=== PATIENT | female | born 1990 | race American Indian/Alaskan Native ===

== ENCOUNTER 2017-04-23 17:13 | Emergency (ER) | payer OTHER ==
[2017-04-23 19:52] LABS: Basophils % (Auto) 0.4 % (0.0-1.8); Eosinophils % (Auto) 0.4 % (0.0-4.3); Hematocrit 36.3 % (30.3-42.9); Mean Corpuscular HGB Conc 33 % (30-34); Mean Corpuscular Hemoglobin 32 pg (28-32); Mean Corpuscular Volume 95 fl (79-97); Platelet Count 278 K/mm3 (140-440); Red Blood Count 3.82 M/mm3 (3.65-5.03); Red Cell Distribution Width 16.2 % (13.2-15.2); White Blood Count 8.2 K/mm3 (4.5-11.0)
[2017-04-23 20:04] LABS: Alanine Aminotransferase 41 units/L (7-56); Albumin 4.1 g/dL (3.9-5); Albumin/Globulin Ratio 1.1 %; Alkaline Phosphatase 45 units/L (35-129); Anion Gap 20 mmol/L; Blood Urea Nitrogen 12 mg/dL (7-17); Calcium 9.9 mg/dL (8.4-10.2); Carbon Dioxide 20 mmol/L (22-30); Chloride 95.7 mmol/L (98-107); Glucose 154 mg/dL (65-100); Lipase 58 units/L (13-60); Potassium 3.7 mmol/L (3.6-5.0); Sodium 132 mmol/L (137-145); Total Protein 7.9 g/dL (6.3-8.2)
[2017-04-23] MEDS ORDERED: NACL 0.9% 1000 ML 1,000 ML IV ONE (22:26)
[2017-04-23] MEDS ORDERED: ZOFRAN IV ONE (22:26)
--- NOTE | 2017-04-23 22:30 | Emergency Department Report ---
ED Abdominal Pain HPI - General Chief Complaint: Nausea/Vomiting/Diarrhea Stated Complaint: ASTHMA/CP/PREG UNK MONTHS Time Seen by Provider: 04/23/17 22:11 Source: patient Mode of arrival: Ambulatory Limitations: No Limitations - History of Present Illness Initial Comments: Patient stated that she is Having lower abdominal pain vaginal bleeding nausea vomiting for the last 2 weeks. MD Complaint: abdominal pain -: week(s) Location: suprapubic Severity scale (0 -10): 4 Quality: cramping, fullness Associated Symptoms: nausea, vomiting. denies: diarrhea - Related Data Previous Rx's Medication Instructions Recorded Last Taken Type Ondansetron [Zofran Odt] 4 mg PO Q4-6H PRN #14 tab.rapdis 04/24/17 Unknown Rx Vit W-Ca,Fe,FA(<1 mg) 1 each PO DAILY #30 tablet 04/24/17 Unknown Rx [ Vitamins] Allergies Allergy/AdvReac Type Severity Reaction Status Date / Time No Known Allergies Allergy Unverified 04/23/17 18:45 ED Review of Systems ROS: Stated complaint: ASTHMA/CP/PREG UNK MONTHS Other details as noted in HPI Comment: All other systems reviewed and negative Constitutional: denies: chills, fever Respiratory: denies: cough, shortness of breath Gastrointestinal: abdominal pain, nausea, vomiting Genitourinary: urgency, frequency Neurological: denies: headache, paresthesias ED Past Medical Hx - Past Medical History Previous Medical History?: Yes Hx Asthma: Yes - Surgical History Past Surgical History?: No - Social History Smoking Status: Former Smoker Substance Use Type: None - Medications Home Medications: Home Medications Medication Instructions Recorded Confirmed Last Taken Type Ondansetron [Zofran Odt] 4 mg PO Q4-6H PRN #14 tab.rapdis 04/24/17 Unknown Rx Vit W-Ca,Fe,FA(<1 mg) 1 each PO DAILY #30 tablet 04/24/17 Unknown Rx [ Vitamins] ED Physical Exam - General Limitations: No Limitations General appearance: alert, in no apparent distress - Head Head exam: Present: atraumatic - Eye Eye exam: Present: normal appearance - ENT ENT exam: Present: normal exam - Neck Neck exam: Present: normal inspection. Absent: tenderness - Respiratory Respiratory exam: Present: normal lung sounds bilaterally. Absent: wheezes, rales, rhonchi - Cardiovascular Cardiovascular Exam: Present: regular rate, normal rhythm, normal heart sounds - GI/Abdominal GI/Abdominal exam: Present: soft, tenderness ( suprapubic), normal bowel sounds. Absent: distended, guarding, rebound - Back Exam Back exam: Present: normal inspection. Absent: tenderness, CVA tenderness (R), CVA tenderness (L) - Neurological Exam Neurological exam: Present: alert, oriented X3, CN II-XII intact - Skin Skin exam: Present: warm, intact ED Course Vital Signs 04/23/17 04/23/17 04/23/17 17:38 22:02 22:11 Temperature 98.1 F Pulse Rate 84 106 H 105 H Respiratory 18 22 25 H Rate Blood Pressure 134/87 138/75 O2 Sat by Pulse 100 Oximetry 04/23/17 04/23/17 04/23/17 22:21 22:30 22:41 Temperature Pulse Rate 100 H 105 H 107 H Respiratory 22 18 14 Rate Blood Pressure 143/79 115/66 143/79 O2 Sat by Pulse Oximetry 04/23/17 23:47 Temperature Pulse Rate 89 Respiratory 17 Rate Blood Pressure 122/71 O2 Sat by Pulse Oximetry - Reevaluation(s) Reevaluation #1: 04/24/17 01:11 Patient stated that she is feeling much better. No abdominal pain or cramping no vaginal bleeding. No nausea or vomiting patient informed him about our ultrasound and that she is having a twin . Patient advised to follow- up with her OB in the next 2-3 days. ED Medical Decision Making - Lab Data Result diagrams: 04/23/17 19:20 04/23/17 19:20 Critical care attestation.: If time is entered above; I have spent that time in minutes in the direct care of this critically ill patient, excluding procedure time. ED Disposition Clinical Impression: Abdominal pain affecting , Twin gestation in first trimester, Vomiting affecting Disposition: DC-01 TO HOME OR SELFCARE Is pt being admited?: No Does the pt Need Aspirin: No Condition: Stable Instructions: Abdominal Pain in (ED), Acute Nausea and Vomiting (ED) Referrals: PRIMARY CARE, [Primary Care Provider] - 3-5 Days
[2017-04-23 23:04] LABS: Bilirubin,Urine NEG (Negative); Blood,Urine NEG (Negative); Ketones,Urine TR mg/dL (Negative); Leukocyte Esterase,Urine TR (Negative); Mucus,Urine 3+ /HPF; Nitrite,Urine NEG (Negative); Urobilinogen,Urine < 2.0 mg/dL (<2.0)
--- NOTE | 2017-04-24 01:01 | Ultrasound Report ---
FINAL REPORT PROCEDURE: US OB TRANSVAGINAL TECHNIQUE: Real-time transvaginal sonography of the uterus, placenta, amniotic fluid, adnexa, and fetus was performed with image documentation. Measurements were obtained to determine age/size. M-mode Doppler was used to document heartbeat. CPT 24392 HISTORY: ABDOMINAL PAIN COMPARISON: No prior studies are available for comparison. FINDINGS: FETUS A: CRL: 20.3mm, which corresponds to a gestational age of: 8weeks, 4 days. Yolk Sac: Normal. Embryonic Cardiac Activity: 177 beats per minute Gestational Sac: Normal. There is a subchorionic hematoma measuring 17 x 3 x 18 millimeters. Right Ovary: There is a 1.5 centimeter cyst. Left Ovary: Normal. Estimated delivery date: November 29, 2017 Comment: Complete anatomic survey at 18-20 weeks suggested. IMPRESSION: 1. Twin intrauterine gestation. Fetus A is at approximately 8 weeks and 4 days 2. EDC by US November 29, 2017. 3. There is a subchorionic hematoma..
--- NOTE | 2017-04-24 01:03 | Ultrasound Report ---
FINAL REPORT PROCEDURE: US OB LESS THAN 14 WEEKS TECHNIQUE: Real-time transabdominal sonography of the uterus, placenta, amniotic fluid, adnexa, and fetus was performed with image documentation. Measurements were obtained to determine age/size. M-mode Doppler was used to document heartbeat. HISTORY: ABDOMINAL PAIN COMPARISON: No prior studies are available for comparison. FINDINGS: FETUS A: CRL: 20.3mm, which corresponds to a gestational age of: 8weeks, 4 days. Yolk Sac: Normal. Embryonic Cardiac Activity: 177 beats per minute Gestational Sac: Normal. There is a subchorionic hematoma measuring 17 x 3 x 18 millimeters. Right Ovary: There is a 1.5 centimeter cyst. Left Ovary: Normal. Estimated delivery date: November 29, 2017 Comment: Complete anatomic survey at 18-20 weeks suggested. IMPRESSION: 1. Twin intrauterine gestation. Fetus A is at approximately 8 weeks and 4 days 2. EDC by US November 29, 2017. 3. There is a subchorionic hematoma..
--- NOTE | 2017-04-24 01:04 | Ultrasound Report ---
FINAL REPORT PROCEDURE: US OB TRANSVAGINAL TECHNIQUE: Real-time transvaginal sonography of the uterus, placenta, amniotic fluid, adnexa, and fetus was performed with image documentation. Measurements were obtained to determine age/size. M-mode Doppler was used to document heartbeat. CPT 76022 HISTORY: ABDOMINAL PAIN COMPARISON: No prior studies are available for comparison. FINDINGS: FETUS B: CRL: 20.7mm, which corresponds to a gestational age of: 8weeks, 4 days. Yolk Sac: Normal. Embryonic Cardiac Activity: 162 beats per minute Gestational Sac: Normal. Right Ovary: There is a 1.5 centimeter cyst. Left Ovary: Normal. Estimated delivery date: November 29, 2017 Comment: Complete anatomic survey at 18-20 weeks suggested. IMPRESSION: 1. Twin intrauterine gestation. Fetus B is at approximately 8 weeks and 4 days 2. EDC by US November 29, 2017.
[2017-04-24 02:24] VITALS: BP 122/72
== END 2017-04-24 01:50 | disposition home or self-care (01) ==
LOC: ED 17:13
DX: O21.9 Vomiting of pregnancy, unspecified (principal); R10.9 Unspecified abdominal pain; J45.909 Unspecified asthma, uncomplicated; Z87.891 Personal history of nicotine dependence; Z3A.08 8 weeks gestation of pregnancy
CPT/HCPCS: 36415; 76801; 76802; 76817; 80053; 81001; 83690; 84702; 85025; 96361; 96374; 99284; J2405; J7030

== ENCOUNTER 2019-09-01 18:46 | Emergency (ER) | payer OTHER ==
--- NOTE | 2019-09-01 19:09 | Event Note ---
ED Screening Note Date of service: 09/01/19 Time: 19:07 ED Screening Note: 28 y o female with pmh of asthma presents for couhghing, sob x 2 days out of inhaler This initial assessment/diagnostic orders/clinical plan/treatment(s) is/are subject to change based on patients health status, clinical progression and re- assessment by fellow clinical providers in the ED. Further treatment and workup at subsequent clinical providers discretion. Patient/guardian urged not to elope from the ED as their condition may be serious if not clinically assessed and managed. Initial orders include: breathing treatment prednisone cxr
--- NOTE | 2019-09-01 19:55 | XRay Report ---
CHEST 2 VIEWS INDICATION / CLINICAL INFORMATION: MAIN: asthma; Pt c/o cough and chest tightness onset 2 days ago, pt reports ran out of inhaler. H/o asthma. . COMPARISON: None available. FINDINGS: SUPPORT DEVICES: None. HEART / MEDIASTINUM: No significant abnormality. LUNGS / PLEURA: No significant pulmonary or pleural abnormality. No pneumothorax. ADDITIONAL FINDINGS: No significant additional findings. IMPRESSION: 1. No acute findings. Signer Name: Tomas Kraft MD Signed: 09/01/2019 7:51 PM Workstation Name: [id number]
[2019-09-01] MEDS ORDERED: dexAMETHasone 20 MG/5 ML VIAL IV ONE (22:08)
[2019-09-01] MEDS ORDERED: ALBUTEROL 2.5 MG/3 ML NEBU IH ONE (22:09)
--- NOTE | 2019-09-01 22:21 | Emergency Department Report ---
ED General Adult HPI - General Chief complaint: Adult Asthma Stated complaint: CHEST PAIN Source: patient Mode of arrival: Ambulatory Limitations: No Limitations - History of Present Illness Initial comments: 28yo BF states that she is experiencing chest tightness and cough x 2 days. The pt states that she ran out of her albuterol inhaler. -: days(s) (2) Location: chest Radiation: abdomen Severity scale (0 -10): 7 Quality: aching Consistency: constant Improves with: none Worsens with: none Associated Symptoms: malaise, weakness Treatments Prior to Arrival: none - Related Data Previous Rx's Medication Instructions Recorded Last Taken Type Ondansetron [Zofran Odt] 4 mg PO Q4-6H PRN #14 tab.rapdis 04/24/17 Unknown Rx Vit Calc,Iron,Folic 1 each PO DAILY #30 tablet 04/24/17 Unknown Rx [ Vitamins] ALBUTEROL Inhaler (OR & NICU) 2 puff IH QID PRN #8.5 gram 09/02/19 Unknown Rx [ProAir HFA Inhaler] Allergies Allergy/AdvReac Type Severity Reaction Status Date / Time No Known Allergies Allergy Verified 09/01/19 18:53 ED Review of Systems ROS: Stated complaint: CHEST PAIN Other details as noted in HPI Comment: All other systems reviewed and negative Constitutional: see HPI Respiratory: see HPI Cardiovascular: as per HPI Gastrointestinal: as per HPI ED Past Medical Hx - Past Medical History Previous Medical History?: Yes Hx Asthma: Yes - Surgical History Past Surgical History?: Yes Additional Surgical History: - Social History Smoking Status: Never Smoker Substance Use Type: None - Medications Home Medications: Home Medications Medication Instructions Recorded Confirmed Last Taken Type Ondansetron [Zofran Odt] 4 mg PO Q4-6H PRN #14 tab.rapdis 04/24/17 Unknown Rx Vit Calc,Iron,Folic 1 each PO DAILY #30 tablet 04/24/17 Unknown Rx [ Vitamins] ALBUTEROL Inhaler (OR & NICU) 2 puff IH QID PRN #8.5 gram 09/02/19 Unknown Rx [ProAir HFA Inhaler] ED Physical Exam - General Limitations: No Limitations General appearance: alert, in no apparent distress - Head Head exam: Present: atraumatic, normocephalic - Eye Eye exam: Present: normal appearance, PERRL Pupils: Present: normal accommodation - ENT ENT exam: Present: normal exam, normal orophraynx - Neck Neck exam: Present: normal inspection. Absent: tenderness - Respiratory Respiratory exam: Present: wheezes (wheezes present diffusely), chest wall tenderness (mid chest tenderness). Absent: respiratory distress - Cardiovascular Cardiovascular Exam: Present: regular rate, normal rhythm, normal heart sounds - GI/Abdominal GI/Abdominal exam: Present: soft, tenderness (tenderness present diffusely), normal bowel sounds. Absent: distended - Rectal Rectal exam: Present: deferred - Extremities Exam Extremities exam: Present: normal inspection, full ROM. Absent: tenderness - Back Exam Back exam: Present: full ROM. Absent: CVA tenderness (R), CVA tenderness (L) - Neurological Exam Neurological exam: Present: alert, altered, oriented X3 - Psychiatric Psychiatric exam: Present: normal affect, normal mood - Skin Skin exam: Present: warm, dry, intact ED Course Vital Signs 09/01/19 09/01/19 19:07 22:27 Temperature 98.6 F Pulse Rate 94 H Pulse Rate [ 75 Bilateral Throughout] Respiratory 18 Rate Respiratory 18 Rate [Bilateral Throughout] Blood Pressure 111/70 [Right] O2 Sat by Pulse 98 Oximetry ED Medical Decision Making - Radiology Data [facility] [address] [place] [address] XRay Report Signed Patient: KARI FRITZ MR#: [id number] : 1990 Acct:[id number] Age/Sex: 28 / F ADM Date: 09/01/19 Loc: ED Attending Dr: Ordering Physician: PEDRO PABLO ZAPIEN Date of Service: 09/01/19 Procedure(s): XR chest routine 2V Accession Number(s): [id number] cc: PEDRO PABLO ZAPIEN Fluoro Time In Minutes: CHEST 2 VIEWS INDICATION / CLINICAL INFORMATION: MAIN: asthma; Pt c/o cough and chest tightness onset 2 days ago, pt reports ran out of inhaler. H/o asthma. . COMPARISON: None available. FINDINGS: SUPPORT DEVICES: None. HEART / MEDIASTINUM: No significant abnormality. LUNGS / PLEURA: No significant pulmonary or pleural abnormality. No pneumothorax. ADDITIONAL FINDINGS: No significant additional findings. IMPRESSION: 1. No acute findings. Signer Name: Tomas Kraft MD Signed: 09/01/2019 7:51 PM Workstation Name: [id number] Transcribed By: MARIO Dictated By: Tomas Kraft MD Electronically Authenticated By: Tomas Kraft MD Signed Date/Time: 09/01/191950 DD/ 49 TD/TT: - Medical Decision Making 28yo BF states that she is experiencing chest tightness and cough x 2 days. The pt states that she ran out of her albuterol inhaler. Pt was given Decadron injection and Albuterol Nebulizer treatment. After the treatment, the pt verbalized less difficulty breathing and a new relief. Pt was informed that an Albuterol inhaler will be prescribed, f/u with PCP, and see ER if symptoms worsen or as needed. Pt verbalized understanding and agreed with the plan of care. Critical care attestation.: If time is entered above; I have spent that time in minutes in the direct care of this critically ill patient, excluding procedure time. ED Disposition Clinical Impression: Asthma exacerbation Disposition: DC-01 TO HOME OR SELFCARE Is pt being admited?: No Does the pt Need Aspirin: No Condition: Stable Instructions: Asthma (ED) Additional Instructions: Pt was informed that an Albuterol inhaler will be prescribed, f/u with PCP, and see ER if symptoms worsen or as needed. Pt verbalized understanding and agreed with the plan of care. Prescriptions: ALBUTEROL Inhaler (OR & NICU) [ProAir HFA Inhaler] 2 puff IH QID PRN #8.5 gram PRN Reason: Shortness Of Breath
[2019-09-02 01:10] VITALS: BP 120/61
== END 2019-09-02 00:30 | disposition home or self-care (01) ==
LOC: ED 18:46
DX: J45.909 Unspecified asthma, uncomplicated (principal); Z98.890 Other specified postprocedural states; Z79.899 Other long term (current) drug therapy
CPT/HCPCS: 71046; 94640; 96374; 99283; J1100; 94644

== ENCOUNTER 2021-03-05 03:00 | Emergency (ER) | payer OTHER ==
[2021-03-05 08:11] VITALS: BP 112/60
== END 2021-03-05 08:24 | disposition home or self-care (01) ==
LOC: ED 03:00
DX: J45.909 Unspecified asthma, uncomplicated (principal); R05 Cough; Z98.890 Other specified postprocedural states; Z79.899 Other long term (current) drug therapy
CPT/HCPCS: 99282